=== PATIENT | male | born 1990 | race Two or more races ===

== ENCOUNTER 2019-08-03 19:49 | Emergency (ER) | payer SELFPAY ==
[~2019-08-03] VITALS: Ht 177.8 cm; Wt 100.0 kg
[2019-08-03] MEDS ORDERED: BACITRACIN ZINC OINT UDPKT TOP ONE (20:30)
[2019-08-03] MEDS ORDERED: KETOROLAC 30MG/ML VIAL IM ONE (20:30)
[2019-08-03] MEDS ORDERED: MORPHINE SULFATE 10 MG/ML CPJ IM ONE (20:30)
[2019-08-03] MEDS ORDERED: TETANUS, DIPHTHERIA, PERTUSSIS VAC/PF 0.5ML (>7YR OLD) IM ONE (20:30)
[2019-08-03] MEDS ORDERED: BACITRACIN 15GM TUBE TOP NR (20:45)
[2019-08-03 22:00] VITALS: BP 124/87
== END 2019-08-03 22:00 | disposition home or self-care (01) ==
LOC: ER 19:49
DX: S60.811A Abrasion of right wrist, initial encounter (principal); S80.211A Abrasion, right knee, initial encounter; M25.521 Pain in right elbow; V29.88XA Motorcycle rider (driver) (passenger) injured in other specified transport accidents, initial encounter; Y93.89 Activity, other specified; Y92.89 Other specified places as the place of occurrence of the external cause; Y99.8 Other external cause status
CPT/HCPCS: 73560; 73590; 90471; 90715; 96372; 99283; J1885; J2270